=== PATIENT | male | born 1975 | race Caucasian/White ===

== ENCOUNTER 2018-06-01 09:50 | Emergency (ER) | payer SELFPAY ==
--- NOTE | 2018-06-01 10:09 | PDOC ---
History of Present Illness - General Chief Complaint: Injury Stated Complaint: RT SHOULDER, NECK PAIN Time Seen by Provider: 06/01/18 10:07 History Source: Patient Exam Limitations: No Limitations - History of Present Illness Initial Comments: 06/01/18 10:08 43 yo male no sig pmh presents to the ED after a fall 2 days ago. Pt was walking down stairs at home when he lost his footing and fell down 10 steps leading to laceration to the bridge of the nose and upper lip, chipped tooth, midline C spine pain and decreased ROM in all planes of the neck due to pain. Pt denies CP, palpitations or concerning symptoms prior to the fall. Denies LOC , HENLEY, N/V, changes in speech or vision, one sided weakness or sensory changes. Past History - Past Medical History Allergies/Adverse Reactions: Allergies Allergy/AdvReac Type Severity Reaction Status Date / Time No Known Allergies Allergy Verified 06/01/18 09:51 Home Medications: Ambulatory Orders Methocarbamol [Robaxin-750] 750 mg PO QID 7 Days #28 tablet 06/01/18 Naproxen Sodium [Naproxen Sodium ER] 375 mg PO BID #14 tbmp.24hr 06/01/18 COPD: No - Suicide/Smoking/Psychosocial Hx Smoking History: Current every day smoker Have you smoked in the past 12 months: Yes Number of Cigarettes Smoked Daily: 30 Information on smoking cessation initiated: Yes Hx Alcohol Use: Yes Drug/Substance Use Hx: No Review of Systems - Review of Systems Constitutional: No: Chills, Fever HEENTM: No: Blurred Vision, Double Vision Respiratory: No: Shortness of Breath Cardiac (ROS): No: Chest Pain, Palpitations ABD/GI: No: Nausea, Vomiting : No: Flank Pain, Hematuria Musculoskeletal: Yes: Other (neck pain with decreased ROM in all planes). No: Muscle Weakness Neurological: No: Headache, Numbness, Paresthesia, Weakness *Physical Exam - Vital Signs Last Vital Signs Temp Pulse Resp BP Pulse Ox 98.3 F 112 H 20 146/102 H 100 06/01/18 09:51 06/01/18 09:51 06/01/18 09:51 06/01/18 09:51 06/01/18 09:51 - Physical Exam General Appearance: Yes: Nourished, Appropriately Dressed, Apparent Distress ( sitting straight up in bed) HEENT: positive: EOMI, NAYAN, Hearing Grossly Normal, Lesions (bridge of nose and upper lip with missing tooth. No open wounds, sores or bleeding ) Neck: positive: Tender lateral, Tender midline Respiratory/Chest: positive: Lungs Clear, Normal Breath Sounds. negative: Accessory Muscle Use, Crackles, Rales, Rhonchi, Wheezing Cardiovascular: positive: Regular Rhythm, Tachycardia Vascular Pulses: Dorsalis-Pedis (R): 4+, Doralis-Pedis (L): 4+ Gastrointestinal/Abdominal: positive: Normal Bowel Sounds, Flat, Soft. negative : Distended, Guarding, Rebound, Tenderness Musculoskeletal: positive: Normal Inspection, Decreased Range of Motion, Vertebral Tenderness (C spine midline tenderness ) Extremity: positive: Normal Capillary Refill, Normal Inspection, Normal Range of Motion. negative: Tender Integumentary: positive: Normal Color, Dry, Warm, Other (laceration to bridge of the nose and upper lip both well healed and approximated well) Neurologic: positive: jigger artisan II-XII NML intact, Fully Oriented, Alert, Normal Mood/ Affect, Normal Response, Motor Strength 5/5. negative: Facial Droop, Numbness, Sensory Deficit, Finger to Nose (normal), Confused, Disoriented Moderate Sedation - Procedure Monitoring Vital Signs: Procedure Monitoring Vital Signs Temperature 98.3 F 06/01/18 09:51 Pulse Rate 112 H 06/01/18 09:51 Respiratory Rate 20 06/01/18 09:51 Blood Pressure 146/102 H 06/01/18 09:51 O2 Sat by Pulse Oximetry (%) 100 06/01/18 09:51 Medical Decision Making - Medical Decision Making 43 yo male no sig pmh presents to the ED after a fall 2 days ago with neck pain and stiffness. Pt denies CP, palpitations or concerning symptoms prior to the fall. Denies LOC, HENLEY, N/V, changes in speech or vision, one sided weakness or sensory changes. DDX includes but is not limited to: vertebral bone fracture, muscle strain, muscle spasms C spine CT shows no fracture Pt responds well to Toradol and Robaxin and both pain and ROM improves on reassessment Likely suffering from C spine muscle spasms DC home with PCP follow up, muscle relaxants, pain medication and strict return precautions *DC/Admit/Observation/Transfer Diagnosis at time of Disposition: Neck pain - Discharge Dispostion Disposition: HOME Condition at time of disposition: Stable Decision to Admit order: No - Prescriptions Prescriptions: Methocarbamol [Robaxin-750] 750 mg PO QID 7 Days #28 tablet Naproxen Sodium [Naproxen Sodium ER] 375 mg PO BID #14 tbmp.24hr - Referrals - Patient Instructions Printed Discharge Instructions: How to Prevent Falls, DI for Neck Pain Additional Instructions: Please make an appointment with your Primary Care Provider within the next 24- 48 hours. Return to the Emergency Room for new or concerning symptoms including but not limited to: severe pain not relieved by medications prescribed, weakness or sensory changes on one side of your body. Take Robaxin and Naproxen as prescribed for your pain. Use heating packs and hot showers to increase mobility and Range Of Motion to the neck. Thank you - Post Discharge Activity
[2018-06-01 10:18] VITALS: BP 146/102; PULSE 112; TEMP 98.3; BMI 22.3
[2018-06-01] MEDS ORDERED: METHOCARBAMOL 500 MG TABLET PO ONE (10:35)
[2018-06-01] MEDS ORDERED: KETOROLAC TROMETHAMINE 60 MG/2 ML VIAL IM ONE (10:35)
[2018-06-01] MEDS ORDERED: KETOROLAC TROMETHAMINE 60 MG/2 ML VIAL ONE (10:39)
[2018-06-01] MEDS ORDERED: METHOCARBAMOL 500 MG TABLET ONE (10:39)
--- NOTE | 2018-06-01 12:28 | PDOC ---
Attending Attestation - Resident Resident Name: Gilbert Chanel - ED Attending Attestation I have performed the following: I have examined & evaluated the patient, The case was reviewed & discussed with the resident, I agree w/resident's findings & plan - HPI HPI: 06/01/18 12:25 Patient is a 43-year-old man who tripped and fell going down the stairs at home last , 3 days ago. He bumped his nose and got a scrape on his nose as well as scrape on his lip. He denies hitting his skull or loss of consciousness. He denies headache, nausea, vomiting, or any focal neurological symptoms. Currently he comes in because of persistent mid and lower neck pain. The pain is worse with range of motion. He denies any numbness, tingling, or weakness in his arms or legs. He denies any bowel or bladder change. - Physicial Exam PE: 06/01/18 12:25 On examination, the patient is holding his neck in a splinted position. There is mid and lower cervical spine and paraspinal tenderness diffusely. There is also bilateral trapezius muscle tenderness. Neurological examination reveals normal motor and sensory function in the extremities. Gait is normal. Skull examination reveals no bruising or injuries. His nasal bridge has a small abrasion as does his upper lip. The teeth are intact with a small chip on his tooth #9. There is no lip laceration. Heart, lungs, abdomen all normal. - Medical Decision Making 06/01/18 12:26 Patient status post mechanical fall 4 days ago. He presents complaining of severe neck pain. He has splinting on examination and diffuse tenderness. CT scan of the cervical spine was performed and reviewed by us as long with radiology. There is degenerative change noted on my review, but radiology assures no fracture or dislocation. Patient will be treated symptomatically and given anti-spasmodic and nonsteroidal for pain. He was further advised to do range of motion exercises gently along with application of a heating pad. Patient will follow-up with orthopedic surgery if symptoms do not improve over the next week or so. Referral discussed and patient agrees.
== END 2018-06-01 12:25 | disposition home or self-care (01) ==
LOC: FER 09:50
PROC: 3E0233Z Introduction of Anti-inflammatory into Muscle, Percutaneous Approach (ICD-10-PCS; principal; 2018-06-01)
DX: M54.2 Cervicalgia (principal); F17.210 Nicotine dependence, cigarettes, uncomplicated
CPT/HCPCS: 72125-TC; 99281-25